=== PATIENT | male | born 1990 | race Caucasian/White ===

== ENCOUNTER 2016-08-03 00:16 | Emergency (ER) | payer SELFPAY ==
[2016-08-03 00:27] VITALS: BP 164/108; PULSE 84; TEMP 98.1; BMI 39.8
[2016-08-03 00:50] LABS: AUTOMATED BASOPHIL 0.9 % (0-2); AUTOMATED EOSINOPHIL 0.4 % (0-5); AUTOMATED LYMPH 20.5 % (17-44); AUTOMATED MONOCYTE 7.4 % (3-10); AUTOMATED NEUTROPHIL 70.8 % (45-76); MPV 7.7 fL (7.4-10.4)
[2016-08-03 01:07] LABS: BLOOD UREA NITROGEN 17 MG/DL (9-20); CALCIUM 9.7 MG/DL (8.4-10.2); CALCULATED OSMOLALITY 279 MOs/Kg (270-290); CHLORIDE 105 mEq/L (98-107); ETOH-MGDL < 10 mg/dL; GLUCOSE 92 MG/DL (70-99); SODIUM LEVEL 144 mEq/L (137-146); TOTAL PROTEIN 7.9 G/DL (6.3-8.2)
== END 2016-08-03 01:00 | disposition left against medical advice (07) ==
LOC: ED 00:16
DX: R45.851 Suicidal ideations (principal)
CPT/HCPCS: 80053; 80307; 85025; 86592; 99281; 99282